=== PATIENT | male | born 1980 | race Caucasian/White ===

== ENCOUNTER 2020-08-21 09:16 | Inpatient (IN) | payer OTHER, SELFPAY ==
[2020-08-21] VITALS (8 sets, daily range): BP systolic 119–138; BP diastolic 52–88
[~2020-08-21] VITALS: Ht 175.3 cm; Wt 86.0 kg
[2020-08-21] MEDS ORDERED: MULT-40 PO (11:27)
[2020-08-21] MEDS ORDERED: VITA-158 PO (11:27)
[2020-08-21] MEDS ORDERED: HEPARIN DRIP 25,000 UNITS in IV 1 EA IV SCH ×2 (13:18→17:00)
[2020-08-21] MEDS ORDERED: HEPARIN SOD (PORCINE) 5000UNITS/ML 1ML VIAL/SYRINGE IV PRN (13:30)
[2020-08-21] MEDS: NS 1,000 ML IV SCH ×2 (13:40→20:37)
--- NOTE | 2020-08-21 14:00 | HPEPDOC ---
[facility] Medical History & Physical Date of Admission Aug 21, 2020 Date of Service: Aug 21, 2020 Attending Physician: GIRISH JUNG MD History and Physical CHIEF COMPLAINT: Transferred from [facility] for saddle pulmonary embolism HISTORY OF PRESENT ILLNESS: 40-year-old male with past medical history of PE after undergoing knee surgery is transferred from [facility] for saddle embolism. Patient had knee surgery 1-2 months ago, was using crutches for ambulation and had decreased mobility than his usual. He reports progressive dyspnea over the past 3 weeks, unable to climb stairs over the past few days due to shortness of breath. This morning, as he went over to tie his shoes before going to work, he passed out. It appears that he had 2 syncopal episodes at home before, to the hospital. At [place], he was found to have a saddle embolism with possible pulmonary infarct. He was transferred to [facility] for further management. He is currently on supplemental oxygen via nasal cannula, asymptomatic at rest, but reports dyspnea on exertion. He had an episode of PE many years ago after prolonged flight, followed by long-distance drive. He was on it for regulation for 9 months at this time, has been off since then. He has no other medical problems, does not take any other medication at this time. He denies any chest pain, nausea, vomiting, abdominal pain or diarrhea at this time. 10 point review of system is negative so for above PAST MEDICAL HISTORY: 1. Pulmonary embolism. PAST SURGICAL HISTORY: 1. Multiple knee surgeries. SOCIAL HISTORY: Never smoker. , Denies alcohol use Denies drug use FAMILY HISTORY: Mother has diabetes mellitus ALLERGIES: Please see below. HOME MEDICATIONS: Please see below. PHYSICAL EXAMINATION: VITAL SIGNS: Please see below. GENERAL: No distress HEENT: Normocephalic, atraumatic, moist mucous membranes NECK: Supple CARDIOVASCULAR EXAMINATION: S1, S2, tachycardic RESPIRATORY EXAMINATION: Basilar rhonchi, no wheezing ABDOMINAL EXAMINATION: Soft, nontender, nondistended, positive bowel sounds EXTREMITIES: Range of motion intact SKIN: No rash NEUROLOGICAL EXAMINATION: Alert and oriented 3, no focal deficits PSYCHIATRIC EXAMINATION: Calm and cooperative LABORATORY DATA: See below. IMAGING: CTA chest at [facility] showing saddle pulmonary embolism with possible pulmonary infarct MICROBIOLOGY: Please see below. ASSESSMENT: 40-year-old male with past medical history of PE is admitted for saddle pulmonary embolism. PLAN: 1. Saddle pulmonary embolus. CT also concerning for possible pulmonary infarct, tachycardic, hypoxemic, syncopal episode prior to arrival. TTE to evaluate for right heart strain, repeat troponin. Continue heparin drip, recheck PTT. Vascular surgery consulted for possible thrombectomy/thrombolysis. Due to recurrent pulmonary embolism patient will likely require lifelong anticoagulation and outpatient hematology evaluation for hypercoagulable workup. DVT prophylaxis: On heparin drip. GI prophylaxis: Not needed Vital Signs Vital Signs Date Time Temp Pulse Resp B/P (MAP) Pulse Ox O2 Delivery O2 Flow Rate FiO2 08/21/20 12:42 98.0 97 17 136/88 (104) 98 Nasal Cannula 2.0 Home Medications Scheduled Ascorbic Acid (Vitamin C) 500 Mg Tablet, 500 MG PO DAILY Multivitamin (Multivitamins) 1 Each Tablet, 1 TAB PO DAILY Allergies Coded Allergies: No Known Allergies (Unverified , 08/21/20) A-FIB/CHADSVASC A-FIB History Current/History of A-Fib/PAF?: No GIRISH JUNG MD Aug 21, 2020 14:00
[2020-08-21 14:07] LABS: HEMATOCRIT 46.1 % (42.0-52.0); HEMOGLOBIN 14.7 g/dl (13.5-17.5); MEAN CORPUSCULAR HEMOGLOBIN 27.9 pg (27.0-33.0); MEAN CORPUSCULAR HGB CONC 31.9 g/dl (32.0-36.5); MEAN CORPUSCULAR VOLUME 87.6 fl (80.0-96.0); PLATELET COUNT, AUTOMATED 204 10^3/uL (150-450); RED BLOOD COUNT 5.26 10^6/uL (4.30-6.10); WHITE BLOOD COUNT 7.5 10^3/uL (4.0-10.0)
--- NOTE | 2020-08-21 14:32 | REP ---
INDICATION: saddle PE. COMPARISON: None. TECHNIQUE: Bilateral lower extremity duplex venous scanning. FINDINGS: The study is positive for occlusive thrombosis of the distal superficial femoral vein and nonocclusive thrombus is seen within the popliteal vein on the right side. The more proximal stone femoral vein on the right and the common femoral vein on the right are clear. The deep veins are anechoic and fully compressible on two-dimensional scanning in the left lower extremity from the groin to the popliteal fossa. Color flow and spectral Doppler interrogation unremarkable on the left. There is no evidence of DVT in the left lower extremity. IMPRESSION: Positive study for occlusive and nonocclusive DVT in the distal femoral vein and popliteal vein on the right side. Negative left lower extremity scanning.. <Electronically signed by Julius Moser > 08/21/20 [id number]
[2020-08-21 15:00] LABS: ALBUMIN 3.6 GM/DL (3.2-5.2); ALT/SGPT 135 U/L (12-78); BILIRUBIN,TOTAL 0.3 MG/DL (0.2-1.0); BLOOD UREA NITROGEN 10 MG/DL (7-18); CALCIUM LEVEL 9.1 MG/DL (8.5-10.1); CARBON DIOXIDE LEVEL 27 MEQ/L (21-32); CHLORIDE LEVEL 109 MEQ/L (98-107); CREATININE FOR GFR 1.13 MG/DL (0.70-1.30); GLOMERULAR FILTRATION RATE > 60.0 (>60); GLUCOSE, FASTING 78 MG/DL (70-100); POTASSIUM SERUM 4.6 MEQ/L (3.5-5.1); SODIUM LEVEL 142 MEQ/L (136-145); TOTAL PROTEIN 7.3 GM/DL (6.4-8.2)
[2020-08-21] MEDS ORDERED: ISOVUE-300 61% 50ML VIAL As Ordered ONE (16:30)
[2020-08-21] MEDS ORDERED: MIDAZOLAM INJ 2MG/2ML VIAL (J2250 PER 1MG) As Ordered ONE (16:30)
[2020-08-21] MEDS ORDERED: fentaNYL 100 MCG/2 ML INJECTION (J3010) As Ordered ONE (16:30)
[2020-08-21] MEDS ORDERED: LIDOCAINE 1% MDV 20ML VIAL As Ordered ONE (16:30)
[2020-08-21] MEDS ORDERED: ALTEPLASE 2MG/2ML VIAL As Ordered ONE (16:31)
[2020-08-21] MEDS ORDERED: ceFAZolin 1GM VIAL (J0690 PER 500MG) As Ordered ONE (16:52)
[2020-08-21] MEDS ORDERED: ALTEPLASE RECOMBINANT 25 MG in NS 225 ML IV SCH (17:00)
--- NOTE | 2020-08-21 17:24 | CR.PDOC ---
General Date of Consultation: Aug 21, 2020 Consultation REASON FOR CONSULTATION/CHIEF COMPLAINT: Pulmonary embolus shortness of breath HISTORY OF PRESENT ILLNESS: This is a very pleasant 40-year-old gentleman who had a right knee surgery in April 2020, and had some increasing shortness of breath over the last week, and then over to tie his shoe today and had a syncopal episode. There is a question of previous syncopal episodes as well due to hypoxia. The patient was seen at [facility] and had a thorough workup including a CTA of the chest. I have reviewed the CTA disks sent with the patient from [place]. The report I received was that the patient had a subtle pulmonary embolus. He does not have a subtle pulmonary embolus, but he does have a large clot burden on both the right and the left. It is significant. It also appears there may be an inferiomedial pulmonary infarct on the right. The patient says he is short of breath when he even sits up in bed. He did have an echo done this afternoon, but the read is not done yet. His troponins are elevated. I feel the patient has indication for TPA thrombolysis for significant pulmonary embolus. We had a long discussion this afternoon at the bedside. We went over risks of bleeding. The patient did not hit his head when he had a syncopal episode and has a negative CT of the head. He has no other history of head trauma. He has no history of brain aneurysm or stroke. He has no history of nose bleeds, bleeding from the gums, hemoptysis, hematemesis, hematuria, hematochezia. He has no history of recent traumas and VCs altercations or other injuries. His only recent surgery is his knee surgery 3 months ago. I discussed with the patient that I think he is a suitable candidate for TPA thrombolysis. We will watch him closely. Informed consent was obtained. Proceed this afternoon. Additionally, I looked at the patient's venous duplex and he does have distal SFA through popliteal thrombus in the right lower extremity. He has a history of DVT in the past in the left leg years ago after prolonged travel. He had a hypercoagulable workup in [place] that was negative. This is a contralateral DVT, status post surgery. I think likely both were provoked. I discussed with the patient that he will need to be on anticoagulation at least one year due to PE. We'll proceed first TPA thrombolysis and he will go to the ICU postprocedure. ALLERGIES: Please see below. HOME MEDICATIONS: Please see below. PAST MEDICAL HISTORY: History of DVT and PE PAST SURGICAL HISTORY: Knee surgery FAMILY HISTORY: Diabetes SOCIAL HISTORY: Patient is in the . He denies tobacco alcohol or illicit drug use. REVIEW OF SYSTEMS: CONSTITUTIONAL: Denies fevers or chills HEENT: Denies vision or hearing changes CARDIOVASCULAR: Denies chest pain RESPIRATORY: Positive for shortness of breath GENITOURINARY: Denies dysuria MUSCULOSKELETAL: Denies difficulty with ambulation positive swelling right leg GASTROINTESTINAL: Denies nausea vomiting diarrhea SKIN: Denies rashes or wound. NEUROLOGICAL: Denies seizures or headache PSYCHIATRIC: Denies anxiety depression ENDOCRINE: Denies diabetes or thyroid disease HEMATOLOGIC/LYMPHATIC: Denies bleeding or clotting disorders ALLERGIC/IMMUNOLOGIC: Denies PHYSICAL EXAMINATION: VITAL SIGNS: Please see below. GENERAL APPEARANCE: Well-appearing no acute distress HEENT: Normocephalic TMI vision grossly intact RESPIRATORY: Slightly diminished breath sounds bilaterally but clear to auscultation no wheezes CARDIOVASCULAR: Regular rate and rhythm ABDOMEN: Soft nontender nondistended. EXTREMITIES: Mild swelling noted right lower extremity otherwise extremities are within normal limits. 2+ distal pulses. No skin changes or ulcers noted. NEUROLOGICAL: Alert and oriented 3 moves all extremities equally PSYCHIATRIC: Pleasant and cooperative LABORATORY DATA: Please see below. ASSESSMENT/PLAN: Very pleasant 40-year-old gentleman with right lower extremity DVT and PE with significant shortness of breath and syncopal episodes and elevat ed troponin 1. Follow-up echocardiogram 2. Plan for TPA thrombolysis pulmonary embolism. Patient will go to ICU postprocedure. 3. Patient will need one year for anticoagulation for PE postprocedure We appreciate the opportunity to participate in care of this patient. Vital Signs/I&O Vital Signs Date Time Temp Pulse Resp B/P (MAP) Pulse Ox O2 Delivery O2 Flow Rate FiO2 08/21/20 14:00 98.0 91 20 136/87 (103) 96 Nasal Cannula 2.0 Laboratory Data Labs 24H Laboratory Tests 2 08/21/20 13:47: Nucleated Red Blood Cells % (auto) 0.0, Activated Partial Thromboplast Time 66.6H, Anion Gap 6L, Glomerular Filtration Rate > 60.0, Calcium Level 9.1, Total Bilirubin 0.3, Aspartate Amino Transf (AST/SGOT) 78H, Alanine Aminotransferase (ALT/SGPT) 135H, Alkaline Phosphatase 107, Troponin I 1.14H, Total Protein 7.3, Albumin 3.6, Albumin/Globulin Ratio 1.0 CBC/BMP Laboratory Tests 08/21/20 13:47 Allergies Coded Allergies: No Known Allergies (Unverified , 08/21/20) Home Medications Scheduled Ascorbic Acid (Vitamin C) 500 Mg Tablet, 500 MG PO DAILY, (Reported) Multivitamin (Multivitamins) 1 Each Tablet, 1 TAB PO DAILY, (Reported) TAWANA OCASIO MD Aug 21, 2020 17:24
--- NOTE | 2020-08-21 18:21 | ROOPDOC ---
[facility] Report Of Operation Report of Operation DATE OF PROCEDURE: 08/21/20 PREPROCEDURE DIAGNOSES: Bilateral pulmonary embolus with hypoxia and elevated troponins POSTPROCEDURE DIAGNOSES: Same PROCEDURE: 1. Ultrasound-guided access left common femoral vein 2. Placement of a 20 cm infusion length TPA thrombolysis catheter right pulmonary artery 3. Right pulmonary arteriogram SURGEON: Tawana Chappell MD ANESTHESIA: Local anesthesia 9 mL lidocaine. Pulse sedation was not administered for this procedure as the patient has had some clear liquids a few hours prior. We did however give him analgesia with 50 g of fentanyl. He had Ancef 1 g IV for the procedure. CONTRAST: 16 mL Isovue-300 INDICATION FOR PROCEDURE: This is a very pleasant 40-year-old gentleman with a history of a left lower extremity DVT with PE in the past, now 3 months status post right knee surgery with a right distal femoral vein and popliteal DVT with bilateral pulmonary emboli. The patient has symptomatic hypoxia with a syncopal episode, elevated troponins, and an echocardiogram was obtained but the results are pending. We discussed the risks benefits and alternatives to pulmonary angiogram and TPA thrombolysis catheter placement. The patient was agreeable to proceed. Informed consent was obtained. INTERPRETATION: Successful catheter placement in the right pulmonary artery confirmed with arteriogram. REPORT OF OPERATION: The patient was brought to the angiographic suite in stable condition. His bilateral groins were prepped and draped in a sterile fashion. A timeout was performed. Antibiotics and analgesia were administered without complication. Local anesthesia was a nurse esthetician to the skin and subcutaneous tissue over the left common femoral vein. A microneedle was used to access the vein under ultrasound guidance. A wire was passed through this access needle was removed. A 4 Ethiopian sheath was placed and flushed with saline. A Glidewire and pigtail catheter were advanced into the aorta. The Glidewire was advanced into the right pulmonary artery. The pigtail catheter was removed and the sheath was exchanged over the wire for a 7 Ethiopian 45 cm destination sheath. The sheath was flushed with saline. We then advanced a TPA thrombolysis catheter over the wire into the right pulmonary artery. A pulmonary arteriogram confirmed we were in the true lumen and no extravasation was noted. 8 mg TPA was flushed through the catheter and we then began a 1 mg TPA per hour drip through the catheter. The heparin drip was converted to the sheath at 500 units an hour. Sterile dressings were applied. The patient was taken to recovery in stable condition. He tolerated the procedure well. ESTIMATED BLOOD LOSS: Approximately 2 mL. COMPLICATIONS: None PLAN: We will transfer the patient to ICU for neuro and mental status monitoring, close monitoring of labs, flat bed rest. We'll possibly bring the patient back tomorrow for repositioning of the catheter or possibly discontinue the catheter at the bedside depending on progress. We will continue the heparin drip at 500 units an hour through the sheath no titration. We will continue the TPA at 1 mg an hour through the TPA thrombolysis catheter. We will monitor fibrinogen. We will monitor CBC. We will monitor closely for bleeding. We apprec iate the opportunity to participate in the care of this patient. TAWANA CHAPPELL MD Aug 21, 2020 18:21
[2020-08-21] MEDS ORDERED: diazePAM 5MG TABLET PO PRN (18:30)
[2020-08-21] MEDS ORDERED: ONDANSETRON 4MG/2ML VIAL IV PRN (18:30)
[2020-08-21] MEDS: PERCOCET 5MG/325MG TAB PO PRN (23:56)
[2020-08-22] VITALS (24 sets, daily range): BP systolic 109–158; BP diastolic 61–101
[2020-08-22 00:27] LABS: HEMATOCRIT 42.2 % (42.0-52.0); HEMOGLOBIN 13.2 g/dl (13.5-17.5); MEAN CORPUSCULAR HEMOGLOBIN 27.6 pg (27.0-33.0); MEAN CORPUSCULAR HGB CONC 31.3 g/dl (32.0-36.5); MEAN CORPUSCULAR VOLUME 88.3 fl (80.0-96.0); PLATELET COUNT, AUTOMATED 171 10^3/uL (150-450); RED BLOOD COUNT 4.78 10^6/uL (4.30-6.10); WHITE BLOOD COUNT 6.9 10^3/uL (4.0-10.0)
[2020-08-22 06:23] LABS: HEMATOCRIT 41.9 % (42.0-52.0); HEMOGLOBIN 13.1 g/dl (13.5-17.5); MEAN CORPUSCULAR HEMOGLOBIN 27.7 pg (27.0-33.0); MEAN CORPUSCULAR HGB CONC 31.3 g/dl (32.0-36.5); MEAN CORPUSCULAR VOLUME 88.6 fl (80.0-96.0); PLATELET COUNT, AUTOMATED 149 10^3/uL (150-450); RED BLOOD COUNT 4.73 10^6/uL (4.30-6.10); WHITE BLOOD COUNT 6.4 10^3/uL (4.0-10.0)
[2020-08-22 07:23] LABS: ALBUMIN 3.1 GM/DL (3.2-5.2); ALT/SGPT 88 U/L (12-78); BILIRUBIN,TOTAL 0.5 MG/DL (0.2-1.0); BLOOD UREA NITROGEN 9 MG/DL (7-18); CALCIUM LEVEL 8.7 MG/DL (8.5-10.1); CARBON DIOXIDE LEVEL 24 MEQ/L (21-32); CHLORIDE LEVEL 106 MEQ/L (98-107); CREATININE FOR GFR 1.14 MG/DL (0.70-1.30); GLOMERULAR FILTRATION RATE > 60.0 (>60); GLUCOSE, FASTING 97 MG/DL (70-100); MAGNESIUM LEVEL 1.8 MG/DL (1.8-2.4); SODIUM LEVEL 140 MEQ/L (136-145); TOTAL PROTEIN 6.6 GM/DL (6.4-8.2)
[2020-08-22] MEDS: PERCOCET 5MG/325MG TAB PO PRN ×3 (07:57→17:44)
--- NOTE | 2020-08-22 08:48 | IPNPDOC ---
Date Seen The patient was seen on 08/22/20. Progress Note Patient seen and examined. He is doing much better this morning. No neurologic deficits noted. He is alert and oriented 3, pupils are equal and reactive, speech is clear, answers all questions appropriately, no headaches, no signs of bleeding noted. His current access site has minimal bruising around the sheath. No hematoma noted. His extremities are warm and well perfused. He says he can take a deep breath and he is no longer in need of nasal cannula supplemental oxygen. We will get an incentive spirometer or to help him with his deep breathing and long reexpansion. His only complaint this morning is some lower back pain from laying flat in the bed. He says the pain medication helps a little, and I encouraged him to take the Valium if he needs to as a muscle relaxer. His fibrinogen is rated and 200, and his platelets are 149, hemoglobin stable at 13, side like to continue the TPA a little bit longer. We will likely discontinue it at the bedside this afternoon. The patient is agreeable to this plan. We will keep him on clear liquid diet until he is able to sit up again. The plan will be to convert the heparin drip from 500 units through the sheath back to therapeutic heparin drip at the IV. We will not give a bolus, but will restart the drip at the rate it was preprocedure. He will then be able to be converted to eliquis this evening. If he is doing well in the morning, and can ambulate without extreme shortness of breath or dizziness, he will be okay for discharge from a vascular standpoint. We would then like to see him back in 3 months with a repeat venous duplex of the right lower extremity. We appreciate the opportunity to participate in the care of this patient. VS, I&O, 24H, [place] Vital Signs/I&O Vital Signs Date Time Temp Pulse Resp B/P (MAP) Pulse Ox O2 Delivery O2 Flow Rate FiO2 08/22/20 07:57 20 08/22/20 07:00 79 114/74 (87) 100 Room Air 08/22/20 04:00 99.0 08/21/20 17:54 2 I&O- Last 24 Hours up to 6 AM 08/22/20 06:00 Intake Total 1210 ml Output Total 1650 ml Balance -440 ml Laboratory Data 24H LABS Laboratory Tests 2 08/21/20 13:47: Nucleated Red Blood Cells % (auto) 0.0, Activated Partial Thromboplast Time 66.6H, Anion Gap 6L, Glomerular Filtration Rate > 60.0, Calcium Level 9.1, Total Bilirubin 0.3, Aspartate Amino Transf (AST/SGOT) 78H, Alanine Aminotransferase (ALT/SGPT) 135H, Alkaline Phosphatase 107, Troponin I 1.14H, Total Protein 7.3, Albumin 3.6, Albumin/Globulin Ratio 1.0 08/21/20 23:55: Nucleated Red Blood Cells % (auto) 0.0, Fibrinogen 256 08/22/20 06:03: Nucleated Red Blood Cells % (auto) 0.0, Anion Gap 10, Glomerular Filtration Rate > 60.0, Calcium Level 8.7, Total Bilirubin 0.5#, Aspartate Amino Transf (AST/SGOT) 35, Alanine Aminotransferase (ALT/SGPT) 88H, Alkaline Phosphatase 97, Total Protein 6.6, Albumin 3.1L, Albumin/Globulin Ratio 0.9, Fibrinogen 209L, Magnesium Level 1.8 CBC/BMP Laboratory Tests 08/21/20 13:47 08/21/20 23:55 08/22/20 06:03 TAWANA OCASIO MD Aug 22, 2020 08:48
--- NOTE | 2020-08-22 08:50 | ECHO ---
DATE OF PROCEDURE: 08/21/2020 Age: 40 Gender: Male Height: 175 cm Weight: 86 kg REFERRING PHYSICIAN: GIRISH JUNG MD INDICATION: Pulmonary embolism. MEASUREMENTS: IVS 1.2 cm LV 3.9 cm LVPW 1.1 cm LA 2.8 cm Aorta 3.3 cm RV 3.3 cm from parasternal long axis view and 4.7 from apical four chamber view IVC 2.4 cm DOPPLER MEASUREMENT Mitral E wave velocity 54 Mitral A 60 E prime septal 6.5 E prime lateral 13.9 FINDINGS: This study is of acceptable technical quality. Underlying sinus rhythm with wide QRS complex. Left ventricle is normal size and has normal systolic function, estimated LVEF approximately 65% to 70%. Borderline LVH is noted. Right ventricle is dilated and hypokinetic. Left atrium is normal size. Right atrium was poorly visualized, but appears enlarged. The aortic, mitral, tricuspid, and pulmonic valves appear normal. No pericardial effusion is noted. Inferior vena cava is dilated and there is minimal appreciable collapse with inspiration indicative of high central venous pressure. Aortic root, aortic arch, and visualized segment of abdominal aorta appear normal. Doppler interrogation reveals competent aortic valve. There is trivial mitral insufficiency and mild tricuspid insufficiency. Calculated pulmonary artery pressure is approximately 65 mmHg corresponding to moderately severe pulmonary hypertension. Trace pulmonic insufficiency is seen. Mitral inflow pattern and tissue Doppler imaging of the mitral annulus reveals grade 1 diastolic dysfunction. CONCLUSIONS: 1. Study is of acceptable technical quality, underlying sinus rhythm with wide QRS complex. 2. Normal LV size with borderline LVH and preserved LV systolic function. Grade 1 diastolic dysfunction. 3. Dilated hypokinetic right ventricle. 4. No significant valvular disease. 5. High central venous pressure and likely moderately severe pulmonary hypertension (calculated pulmonary artery pressure approximately 65 mmHg). MTDD
[2020-08-22 12:20] LABS: HEMATOCRIT 38.5 % (42.0-52.0); HEMOGLOBIN 11.9 g/dl (13.5-17.5); MEAN CORPUSCULAR HEMOGLOBIN 27.9 pg (27.0-33.0); MEAN CORPUSCULAR HGB CONC 30.9 g/dl (32.0-36.5); MEAN CORPUSCULAR VOLUME 90.4 fl (80.0-96.0); PLATELET COUNT, AUTOMATED 134 10^3/uL (150-450); RED BLOOD COUNT 4.26 10^6/uL (4.30-6.10); WHITE BLOOD COUNT 5.1 10^3/uL (4.0-10.0)
--- NOTE | 2020-08-22 16:19 | REP ---
INDICATION: R knee swelling. COMPARISON: None. TECHNIQUE: Four views of the right knee are obtained including AP, both obliques, and lateral view. FINDINGS: Four views of the right knee demonstrate marked prepatellar and peripatellar soft tissue swelling along with a very large joint effusion evident on lateral film.. No fracture or subluxation is seen. No opaque foreign body noted. No soft tissue gas is seen. No acute bony abnormality is seen. Joint spaces are preserved. There is some old irregular spurring at the superior and lateral aspect of the patella. IMPRESSION: Marked soft tissue swelling about the patella. Large joint effusion. No acute bony abnormality.. <Electronically signed by Julius Moser > 08/22/20 3001
--- NOTE | 2020-08-22 17:06 | IPNPDOC ---
Text Note Date of Service The patient was seen on 08/22/20. NOTE Subjective: Patient is a 40 y.o. M with PMH of PE who was transferred from [facility] for saddle embolism. Patient had a right knee surgery in April and was using crutches for ambulation and had decreased mobility prior to presentation. He had progressive dyspnea over the past 3 weeks and had been unable to climb stairs over the past few days due to SOB. One day ago, he bent over to tie his shoes when he had an episode of syncope. He was found to have a saddle embolism at [place] with possible pulmonary infarct. He was transferred here for further management. Patient reports prior history of unprovoked thrombus in the past and had a hypercoagulable workup in [place] in the past and patient states the results showed no underlying conditions. Patient states that he had a L patellar rupture in the past and was prophylactically given Lovenox at home for 2 weeks. In April, patient had a R patellar surgery and was given 81 mg ASA as DVT pro phylaxis. No acute events overnight. Patient states that he has no SOB today and states that this has been the "best I've been able to breath since the last three weeks". Patient has been able to tolerate his clear liquid diet without difficulty. He reports that he has not had a BM since admission. He reports R knee pain and swelling. He states that the swelling has made it difficult for him to flex his R knee. Patient also complains of some back pain at this time. Denies any abd pain or urinary symptoms. Objective: VITAL SIGNS: Please see below. GENERAL: No distress HEENT: Normocephalic, atraumatic, moist mucous membranes NECK: Supple CARDIOVASCULAR: S1, S2, tachycardic RESPIRATORY: Clear to auscultation. Good air movement. No wheezing, rales, or rhonchi ABDOMINAL: Soft, nontender to palpation, nondistended, positive bowel sounds EXTREMITIES: R knee warm to touch. R patellar swelling appreciated. No edema appreciated to bilateral lower extremity. DP pulses present. SKIN: No rash NEUROLOGICAL: Alert and oriented 3 PSYCHIATRIC EXAMINATION: Calm and cooperative Assessment/Plan: # Saddle pulmonary embolus. TTE was done to evaluate for right heart strain as repeat troponin was elevated at 1.14. - Dr. Chappell with vascular surgery was consulted and TPA thrombolysis of pulmonary embolism was done. Pt placed in ICU postprocedure. Continue heparin drip and TPA. PTT on 08/21/2020 was 66.6 and fibrinogen on 08/22/2020 was 209. - Discussed with Dr. Chappell and the plan is to stop TPA later today and continue with heparin drip. Will plan to start Eliquis later today. If patient is doing well and is able to ambulate without extreme SOB or dizziness, he will be okay for discharge from a vascular standpoint. Due to recurrent pulmonary embolism patient will likely require outpatient hematology evaluation for hypercoagulable workup. DVT prophylaxis: On heparin drip. VS,Fishbone, I+O VS, Fishbone, I+O Laboratory Tests 08/21/20 13:47 08/21/20 23:55 08/22/20 06:03 Vital Signs Date Time Temp Pulse Resp B/P (MAP) Pulse Ox O2 Delivery O2 Flow Rate FiO2 08/22/20 08:48 20 Room Air 08/22/20 07:00 79 114/74 (87) 100 08/22/20 04:00 99.0 08/21/20 17:54 2 I&O- Last 24 Hours up to 6 AM 08/22/20 06:00 Intake Total 1210 ml Output Total 1650 ml Balance -440 ml GME ATTESTATION GME ATTESTATION My faculty preceptor for this patient encounter was physically present during the encounter and was fully available. All aspects of the patient interview, examination, medical decision making process, and medical care plan development were reviewed and approved by the faculty preceptor. The faculty preceptor is aware and concurs with the plan as stated in the body of this note and will attest to such by his/her cosignature. ATTENDING NOTE I, Florinda Uriostegui, have independently examined this patient and performed my own physical exam, as well as reviewed the documentation and edited where necessary. I have discussed in detail with the resident / student the findings and plan of treatment as documented by the resident / student and edited their note. I agree with their findings and treatment plan and have edited their documentation. I will continue to follow the patient during this hospital stay. Joyce POLLARD [id number] Aug 22, 2020 09:48 Lukas Queen DO Aug 22, 2020 17:06 FLORINDA URIOSTEGUI MD Aug 22, 2020 18:32
[2020-08-22] MEDS ORDERED: PERCOCET 5MG/325MG TAB PO ONE (20:00)
--- NOTE | 2020-08-22 20:22 | IPNPDOC ---
Subjective Date Seen The patient was seen on 08/22/20. Subjective Chief Complaint/HPI Right knee pain and swelling Assessment /Plan Plan/VTE VTE Prophylaxis Ordered?: Yes VS, I&O, 24H, Fishbone Vital Signs/I&O Vital Signs Date Time Temp Pulse Resp B/P (MAP) Pulse Ox O2 Delivery O2 Flow Rate FiO2 08/22/20 18:26 17 08/22/20 18:00 78 141/78 (99) 98 Room Air 08/22/20 16:16 98.6 08/21/20 17:54 2 I&O- Last 24 Hours up to 6 AM 08/22/20 06:00 Intake Total 1210 ml Output Total 1650 ml Balance -440 ml Laboratory Data 24H LABS Laboratory Tests 2 08/21/20 23:55: Nucleated Red Blood Cells % (auto) 0.0, Fibrinogen 256 08/22/20 06:03: Nucleated Red Blood Cells % (auto) 0.0, Fibrinogen 209L, Anion Gap 10, Glomerular Filtration Rate > 60.0, Calcium Level 8.7, Magnesium Level 1.8, Total Bilirubin 0.5#, Aspartate Amino Transf (AST/SGOT) 35, Alanine Aminotransferase (ALT/SGPT) 88H, Alkaline Phosphatase 97, Total Protein 6.6, Albumin 3.1L, Albumin/Globulin Ratio 0.9 08/22/20 11:56: Nucleated Red Blood Cells % (auto) 0.0, Fibrinogen 211L CBC/BMP Laboratory Tests 08/21/20 23:55 08/22/20 06:03 08/22/20 11:56 Attending Note Attending Note Patient seen at bedside and arthrocentesis performed. Full consult note di ctated. Assessment and Plan: - Low concern for septic arthritis after yield of gross hemarthrosis. - Recommend pressure dressing to prevent hemarthrosis from further developing. - Recommend NWB and to restrict any range of motion - Ortho to continue to follow. If any concerns related to orthopaedic problems please don't hesitate to call Brit Leal MD [phone] JOVAN LEAL MD Aug 22, 2020 20:22
[2020-08-22 20:45] LABS: SOURCE, BODY FLUID RT KNEE; SYNOVIAL FLUID COLOR RED (YELLOW)
[2020-08-22 20:49] LABS: CRYSTALS, BODY FLUID NONE SEEN (NONE SEEN); SOURCE, BODY FLUID CRYSTALS RT KNEE
[2020-08-22] MEDS: APIXABAN 5 MG TAB (ELIQUIS) PO SCH (21:17)
[2020-08-22 21:40] LABS: SOURCE, BODY FLUID GLUCOSE RT KNEE; SOURCE, BODY FLUID URIC ACID RT KNEE; URIC ACID, BODY FLUID 6.7 MG/DL (NOT ESTABLISHED)
[2020-08-23] VITALS: BP 140/83
[2020-08-23 02:00] VITALS: BP 125/62
[2020-08-23] MEDS: PERCOCET 5MG/325MG TAB PO PRN ×3 (03:45→16:44)
[2020-08-23 04:00] VITALS: BP 127/80
[2020-08-23 06:00] VITALS: BP 119/70
[2020-08-23 06:19] LABS: HEMATOCRIT 43.4 % (42.0-52.0); HEMOGLOBIN 13.6 g/dl (13.5-17.5); MEAN CORPUSCULAR HEMOGLOBIN 27.8 pg (27.0-33.0); MEAN CORPUSCULAR HGB CONC 31.3 g/dl (32.0-36.5); MEAN CORPUSCULAR VOLUME 88.8 fl (80.0-96.0); PLATELET COUNT, AUTOMATED 153 10^3/uL (150-450); RED BLOOD COUNT 4.89 10^6/uL (4.30-6.10); WHITE BLOOD COUNT 6.1 10^3/uL (4.0-10.0)
[2020-08-23 07:40] LABS: C REACTIVE PROTEIN QUANTITATIV 1.18 MG/DL (0.00-0.30)
[2020-08-23 08:00] VITALS: BP 126/73
--- NOTE | 2020-08-23 08:20 | IPNPDOC ---
Text Note Date of Service The patient was seen on 08/23/20. NOTE Subjective: Patient is a 40 y.o. M with PMH of PE who was transferred from [facility] for saddle embolism. Patient had a right knee surgery in April and was using crutches for ambulation and had decreased mobility prior to presentation. He had progressive dyspnea over the past 3 weeks and had been unable to climb stairs over the past few days due to SOB. One day ago, he bent over to tie his shoes when he had an episode of syncope. He was found to have a saddle embolism at [facility] with possible pulmonary infarct. He was transferred here for further management. Patient reports prior history of unprovoked thrombus in the past and had a hypercoagulable workup in [place] in the past and patient states the results showed no underlying conditions. Patient states that he had a L patellar rupture in the past and was prophylactically given Lovenox at home for 2 weeks. In April, patient had a R patellar surgery and was given 81 mg ASA as DVT pro phylaxis. No acute events overnight. Patient states that he has no SOB today and states that this has been the "best I've been able to breath since the last three weeks". Patient reports waking up at 3-4am today due to 6/10 knee pain that was relieved after taking Percocet. Reports he no longer has any back pain. He states that his last bowel movement was Friday and attributes it to his decrease d intake of solid foods. Denies any SOB, chest pain, or abdominal pain. Objective: VITAL SIGNS: Please see below. GENERAL: No distress HEENT: Normocephalic, atraumatic, moist mucous membranes NECK: Supple CARDIOVASCULAR: S1, S2, tachycardic RESPIRATORY: Clear to auscultation. Good air movement. No wheezing, rales, or rhonchi ABDOMINAL: Soft, nontender to palpation, nondistended, bowel sounds present but slightly decreased EXTREMITIES: Suprapatellar medial and lateral tenderness. Patient able to flex and extend at his ankle. No calf pain bilaterally. R knee warm to touch. R patellar swelling appreciated. No edema appreciated to bilateral lower extremity. DP pulses present. SKIN: No rash NEUROLOGICAL: Alert and oriented 3 PSYCHIATRIC EXAMINATION: Calm and cooperative Echocardiogram: 08/21/2020- underlying sinus rhythm with wide QRS complex. Borderline LVH, preserved LV systolic function. Grade 1 diastolic dysfunction. Dilated hypokinetic RV, no significant heart valve disease. EF: 60-65%. High CVP, likely moderately severe pulmonary HTN, pulmonary artery pressure ~65mmHg. Assessment/Plan: # Saddle pulmonary embolus. TTE was done to evaluate for right heart strain as repeat troponin was elevated at 1.14. Pt is not having any acute symptoms at this time, therefore repeat troponin not being considered. - Dr. Chappell with vascular surgery was consulted and TPA thrombolysis of pulmonary embolism was done. Pt placed in ICU post-procedure. Continue heparin drip and TPA. PTT on 08/21/2020 was 66.6 and fibrinogen on was 209. - TPA discontinued. Patient started on Eliquis 10mg PO BID. Due to recurrent pulmonary embolism patient will likely require outpatient hematology evaluation for hypercoagulable workup. Patient voices concern that he will be unable to get a hematology follow up if he is discharged from the hospital because he would have to go through the . Will attempt to consult hematology today and get patient a referral. # Hemarthrosis of R knee - Dr. Page, ortho, consulted yesterday. - Arthrocentesis performed yesterday and patient had 140 cc of blood removed from R knee. - Pressure dressing applied to R knee to prevent further hemarthrosis from developing. - Dr. Page recommends SNYDER 2 inhibitors or short term glucocorticoid use for pain, knee immobilizer, and crutches for patient. - Discussed possibility of discharging today with referral to Dr. Page for followup on [facility] as outpatient. DVT prophylaxis: Eliquis. VS,Fishbone, I+O VS, Fishbone, I+O Laboratory Tests 08/22/20 11:56 08/23/20 06:10 Vital Signs Date Time Temp Pulse Resp B/P (MAP) Pulse Ox O2 Delivery O2 Flow Rate FiO2 08/23/20 06:00 67 16 119/70 (86) 98 Room Air 08/23/20 04:00 99.6 08/21/20 17:54 2 I&O- Last 24 Hours up to 6 AM 08/23/20 05:59 Intake Total 1980 ml Output Total 2315 ml Balance -335 ml GME ATTESTATION GME ATTESTATION My faculty preceptor for this patient encounter was physically present during the encounter and was fully available. All aspects of the patient interview, examination, medical decision making process, and medical care plan development were reviewed and approved by the faculty preceptor. The faculty preceptor is aware and concurs with the plan as stated in the body of this note and will attest to such by his/her cosignature. Joyce POLLARD OMS-3 Aug 23, 2020 08:20 Lukas Queen DO Aug 23, 2020 08:29
[2020-08-23] MEDS: APIXABAN 5 MG TAB (ELIQUIS) PO SCH ×2 (08:21→16:51)
[2020-08-23 08:24] LABS: BODY FLUID RHEUMATOID SCREEN NEGATIVE (NEGATIVE)
[2020-08-23 08:25] LABS: MUCIN CLOT TEST 3+ (4+)
--- NOTE | 2020-08-23 08:26 | IPNPDOC ---
Text Note Date of Service The patient was seen on 08/23/20. NOTE Vascular Surgery Dr Chappell. S/P Pulmonary thrombolysis as per Dr Chappell, discontinued 08/22 and transitioned to po Eliquis AC. Patient seen and examined. He is feeling well this morning. No bleeding from catheter site, small amount of oozing from a previous IV site Left arm. His extremities are warm and well perfused. He states breathing is comfortable. If able to ambulate without extreme shortness of breath or dizziness will be okay for discharge from a vascular standpoint. We would then like to see him back in 3 months with a repeat venous duplex of the right lower extremity. We appreciate the opportunity to participate in the care of this patient. VS,Nhung, I+O VS, Nhung, I+O Laboratory Tests 08/22/20 11:56 08/23/20 06:10 Vital Signs Date Time Temp Pulse Resp B/P (MAP) Pulse Ox O2 Delivery O2 Flow Rate FiO2 08/23/20 06:00 67 16 119/70 (86) 98 Room Air 08/23/20 04:00 99.6 08/21/20 17:54 2 I&O- Last 24 Hours up to 6 AM 08/23/20 06:00 Intake Total 1800 ml Output Total 2290 ml Balance -490 ml Salome Schilling Aug 23, 2020 08:26
[2020-08-23] MEDS ORDERED: ELIQ5TAB PO (09:23)
[2020-08-23] MEDS ORDERED: PERCOCET PO ×2 (09:23→16:12)
--- NOTE | 2020-08-23 09:28 | CR ---
CONSULTATION DATE: 08/22/2020 CHIEF COMPLAINT: Right knee pain. 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 He was seen at [facility] and then transferred to [facility] after being diagnosed with a saddle embolism. He was initiated on therapy for his thromboembolism. Shortly after his therapeutic therapy had been started for his thromboembolism he started noticing his right knee was swelling. He denied any fever or chills, or previous pain to this knee. He did have a right knee surgery by myself done in April 2020 but has not had any issues with this knee since my last visit with him several weeks ago. He noted that the knee started getting more swollen and he had greater difficulty with moving the knee. Otherwise, his vitals have remained stable and his white count had not been elevated. Orthopedics was consulted to rule out septic joint with evaluation as well as arthrocentesis. REVIEW OF SYSTEMS: The patient did have the shortness of breath associated with his embolism, otherwise his review of systems were negative. PAST MEDICAL HISTORY: Pulmonary embolism. PAST SURGICAL HISTORY: Bilateral knee patella tendon repairs. SOCIAL HISTORY: Never smoker. Denies alcohol or drug use. FAMILY HISTORY: Mother has diabetes. ALLERGIES: None. HOME MEDICATIONS: Vitamin C and multivitamin. PHYSICAL EXAMINATION: On exam, his vital signs were evaluated and noted to be within normal limits. General: He is well-developed, well-nourished, in no acute distress. HEENT: Normocephalic, atraumatic. Moist mucous membranes. Neck is supple. Cardiovascular examination: Regular rate and rhythm. Respiratory examination: Unlabored breathing. Equal chest expansion. Abdomen is soft, nontender and nondistended. Skin: No ecchymosis, swelling, or breaks in the skin. Neurologic: Alert and oriented x3. Psych: He is calm, cooperative and appropriate. Extremities: Focused exam of the right lower extremity demonstrates right knee is being held in a slightly flexed position with a tense effusion. Patient has difficulty with range of motion and he is tender to palpation around the knee. He has a previous skin incision that is well-healed from his previous surgery. His range of motion is approximately from 5 degrees to 20 degrees. There is no redness. There is some warmth. Otherwise, neurovascularly intact distally. IMAGING STUDIES: Right knee x-ray demonstrates a joint effusion. There is no other acute osseous abnormalities. LABORATORY DATA: His white blood cell count has been within normal limits between 5.1 and 7.5. He does not have an ESR or CRP, they are pending. ASSESSMENT: This is a 40-year-old male with suspected heme arthrosis after initiation of therapeutic Heparin dosing for his thromboembolism. I have low suspicion for a septic joint at this time given the history and the nature of his knee as well as his vital signs, and labs. I recommended to the patient that we do an arthrocentesis to pull off the fluid which I suspect is a hemarthrosis. The patient agrees to this. Informed consent was presented to the patient and was signed by the patient. PROCEDURE NOTE: A time-out was performed and the correct name, identity, arthrocentesis site was confirmed by myself and several others in the room and the patient signed an informed consent. We moved on with prepping the area over the superolateral entry site for the joint with Chlorhexidine. An #18 gauge needle was introduced into the joint and immediately yielded a grossly bloody tap. We were able to remove approximately 120 ml. The patient had immediate improvement of his pain after the joint effusion was removed. The patient was then able to go from approximately 5 degrees to 50 degrees of motion which was an improvement from beforehand. After this was completed, a dressing was placed and a pressure Moshe wrap was then put in place. RECOMMENDATIONS: Orders were placed for synovial fluid analysis to include cell count, crystals and culture. I suspect that the cell count will be high because of the pure bloody tap. I do not recommend for any surgical intervention at this time because of the patient's therapeutic dose of Heparin as well as my low suspicion for infection. I recommend keeping a pressure dressing on and that he remain nonweightbearing to the right lower extremity and minimal range of motion for the next several days to allow this to tamponade off and prevent any further hemarthrosis. Further consideration can be used to COX2 inhibitors and glucocorticoids if this continues on further. For now, further management per the Medical Team and Ortho will continue to follow the patient.
[2020-08-23 12:00] VITALS: BP 113/67
--- NOTE | 2020-08-23 16:27 | IPNPDOC ---
Subjective Date Seen The patient was seen on 08/23/20. Doing much better. The patient says knee feels still swollen, but improved from last night before the arthrocentesis. No new complaints. Subjective Chief Complaint/HPI right knee pain/swelling/hemarthrosis Objective Physical Examination Other physical findings Patient right knee still has some swelling with much smaller effusion compared to last night, no erythema. ROM deferred. NVI distally. Assessment /Plan Assessment 40 M with right knee hemearthrosis in setting of VTE treatment. Doing better after arthrocentesis and pressure wrapping. Plan for discharge today per primary team. - Continue NWB RLE and remain in knee immobilizer - Pain control per primary team - Chemoprophylaxis per primary team - F/u with ortho on [place] next week for repeat exam and repeat arthrocentesis PRN. Plan/VTE VTE Prophylaxis Ordered?: Yes VS, I&O, 24H, Fishbone Vital Signs/I&O Vital Signs Date Time Temp Pulse Resp B/P (MAP) Pulse Ox O2 Delivery O2 Flow Rate FiO2 08/23/20 12:00 99.0 75 18 113/67 (82) 98 Room Air 08/21/20 17:54 2 I&O- Last 24 Hours up to 6 AM 08/23/20 05:59 Intake Total 1980 ml Output Total 2315 ml Balance -335 ml Laboratory Data 24H LABS Laboratory Tests 2 08/22/20 20:22: Body Fluid Source RT KNEE, Body Fluid WBC (Auto) 6486H, Body Fluid RBC (Auto) 2378, Body Fluid Mononuclear Cells % Auto 48.0H, Fluid Polymorphonuclear Cell % Auto 52.0H, Body Fluid Crystals NONE SEEN, Body Fluid Crystal Source RT KNEE, Body Fluid Glucose Source RT KNEE, Body Fluid Glucose 4, Body Fluid Uric Acid 6.7, Body Fluid Uric Acid Source RT KNEE, Body Fluid Rheumatoid Factor Screen NEGATIVE, Body Fluid Rheumatoid Factor Source RT KNEE, Synovial Fluid Source RT KNEE, Synovial Fluid Color RED, Synovial Fluid Appearance TURBID, Synovial Fluid Mucin Clot 3+L 08/23/20 06:10: Nucleated Red Blood Cells % (auto) 0.0 CBC/BMP Laboratory Tests 08/23/20 06:10 Microbiology Microbiology 08/22/20 Gram Stain - Final, Resulted 08/22/20 Body Fluid Culture, Resulted Pending JOVAN LEAL MD Aug 23, 2020 16:27
--- NOTE | 2020-08-23 17:54 | DS.PDOC ---
Discharge Summary General Date of Admission Aug 21, 2020 at 10:50 Date of Discharge 08/23/2020 Attending Physician: FLORINDA URIOSTEGUI MD Specialist/Consultants Involve: JOVAN LEAL MD Discharge Summary PROCEDURES PERFORMED DURING STAY: 08/21/2020-TPA thrombolysis catheter placement in R pulmonary artery for thrombolysis of saddle thrombus; 08/22/2020-synovial tap with synovial fluid analysis. ADMITTING DIAGNOSES: 1. Saddle thrombus. 2. DVT DISCHARGE DIAGNOSES: 1. Saddle thrombus. 2. DVT. 3. Hemarthrosis of R knee COMPLICATIONS/CHIEF COMPLAINT: P.E. HISTORY OF PRESENT ILLNESS: 40-year-old male with past medical history of PE after undergoing knee surgery is transferred from [facility] for saddle embolism. Patient had knee surgery 1-2 months ago, was using crutches for ambulation and had decreased mobility than his usual. He reports progressive dyspnea over the past 3 weeks, unable to climb stairs over the past few days due to shortness of breath. This morning, as he went over to tie his shoes before going to work, he passed out. It appears that he had 2 syncopal episodes at home before, to the hospital. At [place], he was found to have a saddle embolism with possible pulmonary infarct. He was transferred to [facility] for further management. He is currently on supplemental oxygen via nasal cannula, asymptomatic at rest, but reports dyspnea on exertion. He had an episode of PE many years ago after prolonged flight, followed by long-distance drive. He was on it for regulation for 9 months at this time, has been off since then. He has no other medical problems, does not take any other medication at this time. He denies any chest pain, nausea, vomiting, abdominal pain or diarrhea at this time.. HOSPITAL COURSE: Pt was placed on IV Heparin drip upon admission due to saddle thrombus diagnosis from [facility]. Pt was found to have occlusive thrombosis of the distal superficial femoral vein and nonocclusive thrombus in the R popliteal vein. Pt was taken to the angiographic suite in stable condition where Dr. Kaufman, Interventional Radiologist, completed a TPA catheter placement in the right pulmonary artery. Pt was on alteplase given one dose of 25mg in NS while receiving heparin 500 Units per hour. Pt was given incentive spirometer for lung re-expansion. Pt developed right knee effusion on 08/22/2020 for which he received oxycodone/acetaminophen 5mg/ [address] Jovan Leal, with orthopedic surgery, was consulted and he did a synovial tap and aspirated 140cc of blood from the right knee. Orthopedic surgery had reported that this could be attributed to the multiple blood thinners used for the pt's saddle thrombus. Pt was bridged to Eliquis 5mg on 08/23/2020. Dr. Leal saw pt on discharge and suggested that the pt keep the knee immobile (no flexion) and keep the right leg non-weight bearing. Possible re-tapping of knee upon discharge was discussed with pt which will be addressed by orthopedic surgeon on his next appointment - this Friday. His right leg was placed in a knee immobilizer, pt was evaluated by PT, and given crutches to be discharged home. He will be following up with Dr. Leal on 08/29/2020. DISCHARGE MEDICATIONS: Please see below. ALLERGIES: Please see below. PHYSICAL EXAMINATION ON DISCHARGE: VITAL SIGNS: Please see below. GENERAL: no acute distress, motivated to go home, alert and cooperative during exam. HEENT: no scleral icterus appreciated, EOMI, no nasal discharge CARDIOVASCULAR EXAMINATION: RRR, no M/R/G RESPIRATORY EXAMINATION: CTAB, no W/R/R ABDOMINAL EXAMINATION: soft, nontender, BS+ EXTREMITIES: mild swelling of the R knee, improved from prior, tenderness of superolateral and mediolateral surfaces of suprapatellar region. SKIN: no erythema of R knee appreciated NEUROLOGICAL EXAMINATION: pt is able to move toes and expresses good sensation of bilateral legs and feet PSYCHIATRIC EXAMINATION: appropriate, full affect LABORATORY DATA: Please see below. IMAGING: Vascular U/S- 08/21/2020, Positive study for occlusive and nonocclusive DVT in the distal femoral vein and popliteal vein on the right side. Negative left lower extremity scanning Knee X ray- 08/22/2020, Marked soft tissue swelling about the patella. Large joint effusion. No acute bony abnormality. PROGNOSIS: fair ACTIVITY: non-weight bearing right leg, keep right knee immobile, no flexion of right knee. DIET: regular DISCHARGE PLAN: discharge home with home health referral and referrals to Hematology, Vascular Surgery, orthopedic surgery, and PCP. DISCHARGE INSTRUCTIONS: 1. Please present to your PCP within one week, followup with orthopedic surgery with Dr. Leal on 08/29/2020, and with vascular surgery in 3 months. 2. Please keep right knee immobile and non-weightbearing of right leg. (Immobilizer and crutches given during discharge). 3. Please continue Eliquis 5mg daily and present to Hematology office for hypercoagulability workup within 2 weeks to determine the duration of anticoagulation therapy 4. Please follow up with PCP within one week. 5. Please followup with Vascular Surgery in three months with a repeat venous duplex of RLE. ITEMS TO FOLLOWUP ON ON OUTPATIENT: 1. Please continue Eliquis 5mg daily. 2. Please followup with Dr. Leal with orthopedic surgery within 7 days to re- evaluate, keep knee immobile until re-evaluation with Dr. Leal. Re-tapping of right knee may be considered at this time. 3. Please followup with Hematology for hypercoagulability workup. 4. Please followup with PCP within 7 days. 5. Follow up with Vascular Surgery in 3 months with a repeat venous duplex of the RLE. DISCHARGE CONDITION: Stable. TIME SPENT ON DISCHARGE: 35 minutes. Vital Signs/I&Os Vital Signs Date Time Temp Pulse Resp B/P (MAP) Pulse Ox O2 Delivery O2 Flow Rate FiO2 08/23/20 12:00 99.0 75 18 113/67 (82) 98 Room Air 08/21/20 17:54 2 I&O- Last 24 Hours up to 6 AM 08/23/20 06:00 Intake Total 1800 ml Output Total 2290 ml Balance -490 ml Laboratory Data Labs 24H Laboratory Tests 2 08/22/20 20:22: Body Fluid Source RT KNEE, Body Fluid WBC (Auto) 6486H, Body Fluid RBC (Auto) 2378, Body Fluid Mononuclear Cells % Auto 48.0H, Fluid Polymorphonuclear Cell % Auto 52.0H, Body Fluid Crystals NONE SEEN, Body Fluid Crystal Source RT KNEE, Body Fluid Glucose Source RT KNEE, Body Fluid Glucose 4, Body Fluid Uric Acid 6.7, Body Fluid Uric Acid Source RT KNEE, Body Fluid Rheumatoid Factor Screen NEGATIVE, Body Fluid Rheumatoid Factor Source RT KNEE, Synovial Fluid Source RT KNEE, Synovial Fluid Color RED, Synovial Fluid Appearance TURBID, Synovial Fluid Mucin Clot 3+L 08/23/20 06:10: Nucleated Red Blood Cells % (auto) 0.0 CBC/BMP Laboratory Tests 2/24/21 06:10 Microbiology Microbiology 08/22/20 Gram Stain - Final, Resulted 08/22/20 Body Fluid Culture, Resulted Pending Discharge Medications Scheduled Apixaban (Eliquis) 5 Mg Tablet, 5 MG PO ASDIRECTED 10mg po bid x 6 days, followed by 5mg po bid there after Multivitamin (Multivitamins) 1 Each Tablet, 1 TAB PO DAILY, (Reported) Scheduled PRN Oxycodone/Acetaminophen (Oxycodone-Acetaminophen 5-325) 1 Each Tablet, 1 TAB PO Q6HP PRN for mild to moderate pain . Allergies Coded Allergies: No Known Allergies (Unverified , 08/21/20) GME ATTESTATION My faculty preceptor for this patient encounter was physically present during the encounter and was fully available. All aspects of the patient interview, examination, medical decision making process, and medical care plan development were reviewed and approved by the faculty preceptor. The faculty preceptor is aware and concurs with the plan as stated in the body of this note and will attest to such by his/her cosignature. ATTENDING NOTE I, Florinda Uriostegui, have independently examined this patient and performed my own physical exam, as well as reviewed the documentation and edited where necessary. I have discussed in detail with the resident / student the findings and plan of treatment as documented by the resident / student and edited their note. I agree with their findings and treatment plan and have edited their documentation. I will continue to follow the patient during this hospital stay. Time spent on discharge 35 minutes Lukas Queen DO Aug 23, 2020 17:54 FLORINDA URIOSTEGUI MD Aug 23, 2020 18:16
== END 2020-08-23 19:02 | disposition home or self-care (01) | DRG 176 ==
LOC: EDSEX → M MSPAV 10:50 → M ICU 18:13
PROVIDERS: ADMIT Family Medicine; ATTEND Internal Medicine
PROC: B31SYZZ Fluoroscopy of Right Pulmonary Artery using Other Contrast (ICD-10-PCS; 2020-08-21)
PROC: 3E06317 Introduction of Other Thrombolytic into Central Artery, Percutaneous Approach (ICD-10-PCS; principal; 2020-08-21 16:30)
PROC: 0S9C3ZZ Drainage of Right Knee Joint, Percutaneous Approach (ICD-10-PCS; 2020-08-22)
DX: I26.92 Saddle embolus of pulmonary artery without acute cor pulmonale (principal); I82.411 Acute embolism and thrombosis of right femoral vein; M25.031 Hemarthrosis, right wrist

== ENCOUNTER → 2020-11-02 | Outpatient (CLI) | payer OTHER ==
[~2020-11-02] MED LIST: ELIQ5TAB PO; ISOVUE-370 76% 100ML VIAL As Ordered ONE; MULT-40 PO; PERCOCET PO; VITA-158 PO
--- NOTE | 2020-11-02 11:29 | REP ---
INDICATION: SADDLE PE COMPARISON: None. TECHNIQUE: Axial contrast enhanced images from the thoracic inlet to the upper abdomen using pulmonary embolus technique with multiplanar re-formations. 75 ml Isovue 370 intravenous contrast material administered without complication. This CT examination was performed using the following dose reduction techniques: Automated exposure control, adjustment of mA and/or kv according to the patient's size, and use of iterative reconstruction technique. FINDINGS: Satisfactory enhancement of the pulmonary vasculature is achieved and no definite filling defects are identified to suggest pulmonary embolus. A very small partial filling defect in a 3rd order branch to the left lower lobe (series 401; images 97-104) cannot definitively be excluded. Further evaluation of the mediastinum demonstrates normal thoracic aorta, heart and pericardium. The bilateral lung mariee are well aerated and clear without consolidation pleural effusion or pneumothorax. Tracheobronchial tree is patent. No nodule or mass lesion is identified. No adenopathy noted. Surrounding musculoskeletal structures intact IMPRESSION: No definite evidence for pulmonary embolus. Although a very small solitary 3rd order left lower lobe pulmonary embolus cannot definitively be excluded. No acute mediastinal or pleural parenchymal process. <Electronically signed by Jc Aguirre > 11/02/20 [id number]
== END ==
LOC: M RAD 10:24
PROVIDERS: ATTEND Internal Medicine Hematology & Oncology
DX: I26.92 Saddle embolus of pulmonary artery without acute cor pulmonale (principal)
CPT/HCPCS: 71275; Q9967

== ENCOUNTER → 2020-11-29 | Outpatient (CLI) | payer OTHER ==
[~2020-11-29] MED LIST changes: -ISOVUE-370 76% 100ML VIAL As Ordered ONE
--- NOTE | 2020-11-29 08:17 | REP ---
INDICATION: ABD PAIN, GASSINESS, BURPING COMPARISON: None. TECHNIQUE: Real time rodrigues scale ultrasound examination using curved array transducer. FINDINGS: Liver and pancreas are normal in contour, size, and echogenicity without focal hepatic or pancreatic lesions identified. The gallbladder is normal and without gallstones, wall thickening, or pericholecystic fluid. No biliary ductal dilatation is appreciated and the common bile duct measures 3.2 mm diameter. Right kidney is normal in reniform shape without hydronephrosis and measures 10.4 x 5.6 x 4.0 cm. No ascites in the visualized right upper quadrant. IMPRESSION: Normal limited right upper quadrant ultrasound <Electronically signed by Jc Aguirre > 11/29/20 [id number]
== END ==
LOC: M RAD 07:11
PROVIDERS: ATTEND Internal Medicine Hematology & Oncology
DX: I26.99 Other pulmonary embolism without acute cor pulmonale (principal)

== ENCOUNTER → 2021-06-13 | Outpatient (REF) ==
--- NOTE | 2021-06-13 10:23 | REP ---
INDICATION: SOB. COMPARISON: None. TECHNIQUE: PA and lateral FINDINGS: The superior mediastinal structures are midline. The cardiac silhouette is unremarkable in size, shape, and position. The diaphragmatic surfaces of the lungs are regular, and the costophrenic angles are clear. The pulmonary mariee are clear. The imaged osseous structures are intact. IMPRESSION: There is no acute cardiopulmonary disease. <Electronically signed by Lisandro Mcdermott > 06/13/21 [id number]
== END ==
LOC: M PLAIMG 09:30
PROVIDERS: ATTEND Internal Medicine
DX: R06.02 Shortness of breath (principal)

== ENCOUNTER → 2021-07-06 | Outpatient (REF) | LOC: M PLAIMG 09:30 | PROVIDERS: ATTEND Internal Medicine | DX: M25.511 Pain in right shoulder (principal); M25.512 Pain in left shoulder; M25.561 Pain in right knee; M25.562 Pain in left knee ==

== ENCOUNTER → 2021-10-02 | Outpatient (CLI) | payer OTHER | LOC: M WHC 08:16 | PROVIDERS: ATTEND Internal Medicine Hematology & Oncology | DX: I26.99 Other pulmonary embolism without acute cor pulmonale (principal) ==